=== PATIENT | female | born 1955 | race African-American/Black ===

== ENCOUNTER 2018-01-16 11:49 | Inpatient (IN) | payer MEDICAID ==
[~2018-01-16] VITALS: Ht 157.5 cm; Wt 127.0 kg
[~2018-01-16 11:49] MED LIST: AMLO10TA80 PO; AMLO1CAP53 PO; BENA20TA3 PO; FURO-151 PO; LORA-249; OMEP20CA10; POTA8TAB4; TRAZ-129
[2018-01-16] MEDS ORDERED: CLOP75TA16 PO (11:58)
[2018-01-16] MEDS ORDERED: ALBUTEROL (0.083%) 2.5MG/3ML NEB HHN STA (12:11)
[2018-01-16] MEDS ORDERED: IPRATROPIUM BROMIDE (0.02%) 0.5MG/2.5ML NEB HHN STA (12:11)
[2018-01-16 12:41] LABS: BASOPHILS % 1.3 % (0.0-2.0); EOSINOPHILS % 0.9 % (0.0-5.0); HEMATOCRIT. 31.2 % (36.0-48.0); LYMPHOCYTES % 32.3 % (20.0-50.0); MEAN CORPUSCULAR HEMOGLOBIN 26.1 pg (28.0-32.0); MEAN CORPUSCULAR VOLUME 81.8 fL (81.0-99.0); MEAN PLATELET VOLUME 9.1 fl (7.4-10.4); MONOCYTES % 6.7 % (2.0-8.0); NEUTROPHILS % 58.8 % (40.0-76.0); PLATELET 329 x1000/uL (130-400); RED BLOOD CELL COUNT 3.82 mill/uL (4.2-5.4); RED CELL DISTRIBUTION WIDTH 22.5 % (11.6-14.6)
[2018-01-16 12:47] LABS: CHLORIDE 103 mEq/L (98-107)
[2018-01-16 13:23] LABS: PLATELET ESTIMATE NORMAL
[2018-01-16] MEDS ORDERED: FUROSEMIDE 40MG/4ML VIAL IVP ONE (15:45)
[2018-01-16] MEDS ORDERED: ASPIRIN 325MG EC TABLET PO ONE (15:45)
[2018-01-16] MEDS ORDERED: KETOROLAC 30MG/ML VIAL IV ONE (15:45)
[2018-01-16] MEDS ORDERED: NITROGLYCERIN OINT 1GM/INCH UDPKT TD ONE (15:45)
[2018-01-16] MEDS ORDERED: CLONIDINE 0.2MG TABLET PO ONE (15:45)
[2018-01-16] MEDS ORDERED: HYDRALAZINE 20MG/ML VIAL IV ONE (16:45)
[2018-01-16 18:30] VITALS: BP 136/56
[2018-01-16 20:00] VITALS: BP 150/75
[2018-01-16] MEDS ORDERED: METO-539 PO (21:07)
[2018-01-16] MEDS ORDERED: HYDR-4009 PO (21:07)
[2018-01-16] MEDS ORDERED: [UNRECOGNIZED DRUG - CODE] PO (21:07)
[2018-01-16] MEDS ORDERED: DIPH25TA23 PO (21:07)
[2018-01-16] MEDS ORDERED: METF500T6 PO (21:07)
[2018-01-16] MEDS ORDERED: DOCU-266 PO (21:07)
[2018-01-16] MEDS ORDERED: ALBU18HF2 IH ×2 (21:07→21:12)
[2018-01-16] MEDS ORDERED: DEXTROSE 50% WATER 50ML SYRINGE IV PRN (22:15)
[2018-01-16] MEDS ORDERED: ALBUTEROL 6.7GM HFA INHALER ORI PRN (22:15)
[2018-01-16] MEDS: DIPHENHYDRAMINE 25MG CAPSULE PO SCH (22:56)
[2018-01-16] MEDS ORDERED: ALBUTEROL (0.083%) 2.5MG/3ML NEB HHN PRN (23:00)
[2018-01-16] MEDS: ZOLPIDEM TARTRATE 5MG TABLET PO PRN (23:35)
[2018-01-17] VITALS (8 sets, daily range): BP systolic 118–191; BP diastolic 79–99
[2018-01-17] MEDS: INSULIN LISPRO 100 UNITS/ML SUBCUT SCH ×4 (06:22→21:00)
[2018-01-17] MEDS: BLOOD SUGAR DIAGNOSTIC STRIP TEST SCH ×4 (06:22→21:00)
[2018-01-17 06:59] LABS: BASOPHILS % 0.8 % (0.0-2.0); EOSINOPHILS % 1.8 % (0.0-5.0); HEMATOCRIT. 28.3 % (36.0-48.0); HEMOGLOBIN. 9.1 g/dL (12.0-16.0); LYMPHOCYTES % 30.2 % (20.0-50.0); MEAN CORPUSCULAR HEMOGLOBIN 26.2 pg (28.0-32.0); MEAN CORPUSCULAR VOLUME 81.8 fL (81.0-99.0); MEAN PLATELET VOLUME 9.2 fl (7.4-10.4); MONOCYTES % 9.2 % (2.0-8.0); PLATELET 278 x1000/uL (130-400); RED BLOOD CELL COUNT 3.46 mill/uL (4.2-5.4); RED CELL DISTRIBUTION WIDTH 22.3 % (11.6-14.6)
[2018-01-17 08:34] LABS: CHLORIDE 104 mEq/L (98-107)
[2018-01-17] MEDS ORDERED: MEDICATION NOT ON FORMULARY EA (Metoprolol Tartrate 50 MG) PO SCH (09:00)
[2018-01-17] MEDS ORDERED: MEDICATION NOT ON FORMULARY EA (Clopidogrel Bisulfate (Plavix) 75 MG) PO SCH (09:00)
[2018-01-17] MEDS ORDERED: MEDICATION NOT ON FORMULARY EA (Metformin Hcl 500 MG) PO SCH (09:00)
[2018-01-17] MEDS: ENOXAPARIN 40MG/0.4ML SYR SUBCUT SCH ×2 (09:00→20:25)
[2018-01-17] MEDS ORDERED: DICLOFENAC SODIUM 100 MG PO SCH (09:00)
[2018-01-17] MEDS ORDERED: ENOXAPARIN 40MG/0.4ML SYR SUBCUT SCH (09:00)
[2018-01-17] MEDS ORDERED: DOCUSATE SODIUM 250 MG PO SCH (09:00)
[2018-01-17] MEDS: DICLOFENAC SODIUM 50MG EC TABLET PO SCH ×2 (09:18→16:38)
[2018-01-17] MEDS: METFORMIN HCL 500MG TABLET PO SCH ×2 (09:18→16:39)
[2018-01-17] MEDS: CLOPIDOGREL 75MG TABLET PO SCH (09:18)
[2018-01-17] MEDS: FUROSEMIDE 40MG/4ML VIAL IVP SCH (09:19)
[2018-01-17] MEDS: DOCUSATE SODIUM 250MG CAPSULE PO SCH (09:19)
[2018-01-17] MEDS: METOPROLOL TARTRATE 50MG TABLET PO SCH ×2 (09:22→20:24)
[2018-01-17] MEDS: HYDROCODONE/ACETAMINOPHEN 10/325MG TABLET PO PRN (20:25)
[2018-01-17] MEDS: DIPHENHYDRAMINE 25MG CAPSULE PO SCH (20:32)
[2018-01-17] MEDS ORDERED: DIPHENHYDRAMINE HCL 25 MG PO SCH (21:00)
[2018-01-18] VITALS: BP 144/76
[2018-01-18] MEDS: ZOLPIDEM TARTRATE 5MG TABLET PO PRN ×2 (01:07→21:44)
[2018-01-18 04:00] VITALS: BP 170/71
[2018-01-18] MEDS: BLOOD SUGAR DIAGNOSTIC STRIP TEST SCH ×4 (06:10→20:24)
[2018-01-18] MEDS: INSULIN LISPRO 100 UNITS/ML SUBCUT SCH ×4 (06:11→20:24)
[2018-01-18] MEDS: FUROSEMIDE 40MG/4ML VIAL IVP SCH (08:20)
[2018-01-18] MEDS: METFORMIN HCL 500MG TABLET PO SCH ×2 (08:21→16:48)
[2018-01-18] MEDS: DOCUSATE SODIUM 250MG CAPSULE PO SCH (08:21)
[2018-01-18] MEDS: METOPROLOL TARTRATE 50MG TABLET PO SCH ×2 (08:22→21:00)
[2018-01-18] MEDS: DICLOFENAC SODIUM 50MG EC TABLET PO SCH ×2 (08:22→16:48)
[2018-01-18] MEDS: ENOXAPARIN 40MG/0.4ML SYR SUBCUT SCH ×2 (08:26→21:44)
[2018-01-18] MEDS: CLOPIDOGREL 75MG TABLET PO SCH (08:31)
[2018-01-18] MEDS: HYDROCODONE/ACETAMINOPHEN 10/325MG TABLET PO PRN ×3 (08:32→17:02)
[2018-01-18 16:00] VITALS: BP 168/88
[2018-01-18 17:50] VITALS: BP 168/84
[2018-01-18 20:00] VITALS: BP 189/88
[2018-01-18] MEDS ORDERED: CLONIDINE 0.3MG TABLET PO NR (20:15)
[2018-01-18] MEDS ORDERED: IBUPROFEN 600MG TABLET PO PRN (20:15)
[2018-01-18] MEDS ORDERED: POTASSIUM CHLORIDE 20MEQ TABLET SR PO NR (20:15)
[2018-01-18] MEDS: DIPHENHYDRAMINE 25MG CAPSULE PO SCH (21:00)
[2018-01-18 22:21] VITALS: BP 155/79
== END 2018-01-18 23:27 | disposition home or self-care (01) | DRG 194 ==
LOC: ER 11:49 → 5WST 16:01 → ENRESERV 16:15 → CANRESERV 16:35 → ENRESERV 16:35
PROVIDERS: ADMIT Internal Medicine; ATTEND Internal Medicine
PROC: 5A09357 Assistance with Respiratory Ventilation, Less than 24 Consecutive Hours, Continuous Positive Airway Pressure (ICD-10-PCS; principal; 2018-01-16)
DX: I11.0 Hypertensive heart disease with heart failure (principal); J96.00 Acute respiratory failure, unspecified whether with hypoxia or hypercapnia; I50.33 Acute on chronic diastolic (congestive) heart failure; E11.9 Type 2 diabetes mellitus without complications; I25.10 Atherosclerotic heart disease of native coronary artery without angina pectoris; Z79.84 Long term (current) use of oral hypoglycemic drugs; Z79.899 Other long term (current) drug therapy
CPT/HCPCS: 36415; 71045; 80048; 80053; 82962; 83605; 83690; 83880; 84484; 85025; 87040; 93005; 94640; 94660; 96374; 96375; 99285; J0360; J1650; J1885; J1940; J7611; Q0163

== ENCOUNTER 2021-01-29 00:04 | Emergency (ER) | payer MEDICARE, MEDICAID ==
[~2021-01-29] VITALS: Ht 160 cm; Wt 115.0 kg
[~2021-01-29 00:04] MED LIST changes: +ALBU18HF2 IH; -AMLO10TA80 PO; -AMLO1CAP53 PO; -BENA20TA3 PO; +CLOP-31 PO; +DICL100T83 PO; +DIPH25TA23 PO; +DOCU-266 PO; -FURO-151 PO; +FURO40TA5 PO; +HYDR-4009 PO; +LIP40 PO; +LISI20TA31 PO; -LORA-249; +METF-414 PO; -OMEP20CA10; -POTA8TAB4; -TRAZ-129
[2021-01-29 00:49] LABS: BASOPHILS % 1.2 % (0.0-2.0); HEMATOCRIT. 34.4 % (36.0-48.0); LYMPHOCYTES % 45.7 % (20.0-50.0); MEAN CORPUSCULAR HEMOGLOBIN 25.9 pg (28.0-32.0); MEAN CORPUSCULAR VOLUME 80.6 fL (81.0-99.0); MEAN PLATELET VOLUME 8.3 fl (7.4-10.4); MONOCYTES % 7.6 % (2.0-8.0); NEUTROPHILS % 43.5 % (40.0-76.0); PLATELET 362 x1000/uL (130-400); RED BLOOD CELL COUNT 4.26 mill/uL (4.2-5.4); RED CELL DISTRIBUTION WIDTH 17.5 % (11.6-14.6)
[2021-01-29 00:58] LABS: CHLORIDE 105 mEq/L (98-107)
[2021-01-29 01:04] LABS: ETHANOL BLOOD < 10 mg/dL
[2021-01-29] MEDS ORDERED: ASPIRIN 325MG EC TABLET PO ONE (02:30)
[2021-01-29 02:42] LABS: CLARITY URINE CLEAR (CLEAR); COLOR URINE YELLOW (YELLOW); KETONES URINE NEGATIVE (NEGATIVE); LEUKOCYTE ESTERASE URINE NEGATIVE (NEGATIVE); NITRITE URINE NEGATIVE (NEGATIVE); OCCULT BLOOD URINE TRACE (NEGATIVE); PH URINE 5.5 (4.5-8.0); PROTEIN URINE 2+ (NEGATIVE); SPECIFIC GRAVITY URINE 1.022 (1.005-1.030)
[2021-01-29 02:51] LABS: *AMPHETAMINES SCREEN URINE NEGATIVE (NEGATIVE); *BARBITURATES SCREEN URINE NEGATIVE (NEGATIVE); *BENZODIAZEPINES SCREEN URINE NEGATIVE (NEGATIVE); *COCAINE SCREEN URINE NEGATIVE (NEGATIVE)
[2021-01-29 02:52] LABS: CANNABINOID URINE SCREEN NEGATIVE (NEGATIVE); METHADONE URINE SCREEN NEGATIVE (NEGATIVE); OPIATES URINE SCREEN NEGATIVE (NEGATIVE); PHENCYCLIDINE URINE SCREEN NEGATIVE (NEGATIVE)
[2021-01-29] MEDS ORDERED: ACET-2708 MT (04:12)
[2021-01-29 04:20] VITALS: BP 157/92
== END 2021-01-29 04:33 | disposition home or self-care (01) ==
LOC: ER 00:04
DX: R07.89 Other chest pain (principal); D64.9 Anemia, unspecified; I11.0 Hypertensive heart disease with heart failure; I50.9 Heart failure, unspecified; E11.9 Type 2 diabetes mellitus without complications; F12.10 Cannabis abuse, uncomplicated; Z79.899 Other long term (current) drug therapy
CPT/HCPCS: 36415; 71045; 80053; 80305; 80307; 80320; 80329; 81003; 83880; 84484; 85025; 93005; 99285; G0480